=== PATIENT | male | born 1990 | race Caucasian/White ===

== ENCOUNTER 2016-09-07 13:42 | Emergency (ER) | payer SELFPAY ==
[2016-09-07 16:16] VITALS: BP 119/74
== END 2016-09-07 16:16 | disposition home or self-care (01) ==
LOC: ED 13:42
DX: S96.912A Strain of unspecified muscle and tendon at ankle and foot level, left foot, initial encounter (principal); R03.0 Elevated blood-pressure reading, without diagnosis of hypertension; X58.XXXA Exposure to other specified factors, initial encounter; Y93.89 Activity, other specified; Y99.8 Other external cause status; Y92.89 Other specified places as the place of occurrence of the external cause